=== PATIENT | female | born 1975 | race American Indian/Alaskan Native ===

== ENCOUNTER 2022-11-18 13:21 | Emergency (ER) | payer BC | END 2022-11-18 14:05 | disposition home or self-care (01) | LOC: DL.ED 13:21 | DX: R11.2 Nausea with vomiting, unspecified (principal); R19.7 Diarrhea, unspecified; Z88.1 Allergy status to other antibiotic agents; Z88.5 Allergy status to narcotic agent; Z88.0 Allergy status to penicillin | CPT/HCPCS: 99283 ==

== ENCOUNTER 2024-05-13 13:07 | Emergency (ER) | payer BC ==
[2024-05-13] MEDS: Dexamethasone 4 MG/ML SDV IM ONE (14:23)
== END 2024-05-13 14:30 | disposition home or self-care (01) ==
LOC: DL.ED 13:07
DX: M54.16 Radiculopathy, lumbar region (principal); I10 Essential (primary) hypertension; F17.210 Nicotine dependence, cigarettes, uncomplicated; Z88.0 Allergy status to penicillin; Z88.1 Allergy status to other antibiotic agents; Z88.8 Allergy status to other drugs, medicaments and biological substances
CPT/HCPCS: 96372; 99283; J1100

== ENCOUNTER 2024-11-21 07:10 | Day surgery (SDC) | payer MEDICAID ==
[2024-11-21] MEDS: Dextrose 5%-0.45% NaCl 1,000 ML IV SCH (07:10)
[2024-11-21] MEDS ORDERED: fentaNYL 100 MCG/2 ML SDV IV ONE (08:04)
[2024-11-21] MEDS ORDERED: Midazolam 1 MG/ML 2 ML SDV IV ONE (08:04)
[2024-11-21] MEDS: fentaNYL 100 MCG/2 ML SDV IV ONE ×2 (08:08→08:10)
[2024-11-21] MEDS: Midazolam 1 MG/ML 2 ML SDV IV ONE ×3 (08:11→08:14)
== END 2024-11-21 10:00 | disposition home or self-care (01) ==
LOC: DL.ENDO 07:10
PROVIDERS: ATTEND Internal Medicine Gastroenterology
DX: K29.50 Unspecified chronic gastritis without bleeding (principal); K31.84 Gastroparesis
CPT/HCPCS: J2250; J3010